=== PATIENT | female | born 1950 | race Caucasian/White ===

== ENCOUNTER 2018-05-28 12:39 | Emergency (ER) | payer MEDICARE, MEDICAID ==
[~2018-05-28] VITALS: Ht 149.9 cm; Wt 74.1 kg
[2018-05-28 12:44] VITALS: BP 152/77
[2018-05-28] MEDS ORDERED: gabapentin 300mg capsule PO STA (13:22)
[2018-05-28] MEDS ORDERED: triamcinolone acetonide 40mg/ml inj IM ONE (13:25)
[2018-05-28] MEDS ORDERED: HYDR-565 PO (14:41)
== END 2018-05-28 14:50 | disposition home or self-care (01) ==
LOC: ER 12:40
DX: M54.5 Low back pain (principal); Z88.1 Allergy status to other antibiotic agents; Z79.899 Other long term (current) drug therapy
CPT/HCPCS: 72100; 96372; 99284; J3301

== ENCOUNTER 2020-12-11 15:21 | Outpatient (CLI) | payer MEDICARE, MEDICAID ==
[~2020-12-11 15:21] MED LIST: ATOR40TA PO; BACL10TA2 PO; CALC300T4 PO; DULO-31 PO; LISI10TA4 PO; LURA20TA PO; LUTE20CA PO; MIRT-116 PO; MONT10TA97 PO; MV,C1TAB21 PO; NAPR375T5 PO; OMEG1CAP2 PO; OMEP20CA15 PO; OXYB5TAB16 PO; iron PO
== END 2020-12-11 23:59 | disposition home or self-care (01) ==
LOC: RAD 15:21
PROVIDERS: ATTEND Family Medicine
DX: R13.10 Dysphagia, unspecified (principal)
CPT/HCPCS: 74230

== ENCOUNTER 2022-03-31 11:59 | Emergency (ER) | payer MEDICARE, MEDICAID ==
[~2022-03-31] VITALS: Ht 149.9 cm; Wt 73.6 kg
[~2022-03-31 11:59] MED LIST changes: +LISI10TA27 PO; -LISI10TA4 PO; +MONT-40 PO; -MONT10TA97 PO
[2022-03-31 12:55] LABS: CLARITY,URINE SLIGHTLY CLOUDY (Clear); COLOR,URINE YELLOW (Yellow); GLUCOSE, URINE NEGATIVE (Neg); KETONES,URINE NEGATIVE (Neg); LEUKOCYTE ESTERASE ,URINE SMALL (Neg); NITRITES, URINE POSITIVE (Neg); OCCULT BLOOD,URINE NEGATIVE (Neg); PROTEIN,URINE NEGATIVE (Neg); UA COLLECTION TYPE CLN CATCH MIDSTREAM; UROBILINOGEN,URINE 0.2 E.U/dL (0.2-1.0)
[2022-03-31 13:07] LABS: BACTERIA,URINE 3+ /HPF (Neg); RBC,URINE 0-2 /HPF (0-2); SQUAMOUS EPITHELIAL CELL,UR FEW /LPF (FEW)
[2022-03-31] MEDS ORDERED: cephalexin 250mg capsule PO ONE (18:45)
[2022-03-31] MEDS ORDERED: ondansetron 4mg rapidly disintigrating tab PO ONE (18:45)
[2022-03-31 19:07] LABS: BASOPHILS % (AUTO) 0.6 % (0-1); EOSINOPHILS # (AUTO) 0.2 X10'3 (0-0.9); EOSINOPHILS % (AUTO) 2.5 % (0-6); HEMATOCRIT 40.6 % (35.0-45.0); HEMOGLOBIN 13.7 g/dl (12.0-16.0); LYMPHOCYTES # (AUTO) 2.7 X10'3 (1.1-4.8); LYMPHOCYTES % (AUTO) 34.8 % (21-51); MEAN CORPUSCULAR HEMOGLOBIN 30.5 PG (27.0-31.0); MEAN CORPUSCULAR HGB CONC 33.7 g/dL (33.0-36.5); MEAN CORPUSCULAR VOLUME 90.4 FL (78-98); MEAN PLATELET VOLUME 9.2 FL (7.4-10.4); MONOCYTES # (AUTO) 0.6 X10'3 (0-0.9); MONOCYTES % (AUTO) 7.3 % (2-12); NEUTROPHILS # (AUTO) 4.2 X10'3 (1.8-7.7); NEUTROPHILS % (AUTO) 54.8 % (42-75); PLATELET COUNT 204 X10'3 (140-440); RED BLOOD COUNT 4.49 X10'6 (4.20-5.60); RED CELL DISTRIBUTION WIDTH 13.5 % (11.5-14.5); WHITE BLOOD COUNT 7.7 X10'3 (4.5-11.0)
[2022-03-31 19:16] VITALS: BP 169/58
[2022-03-31 19:30] LABS: ALANINE AMINOTRANSFERASE 15 U/L (12-78); ALBUMIN 3.5 G/DL (3.4-5.0); ALBUMIN/GLOBULIN RATIO 0.9 (1.1-1.5); ALKALINE PHOSPHATASE 82 IU/L (46-116); ANION GAP 5 (8-16); ASPARTATE AMINO TRANSFERASE 11 U/L (10-37); BILIRUBIN,TOTAL 0.7 MG/DL (0.1-1.0); BLOOD UREA NITROGEN 20 MG/DL (7-18); BUN/CREATININE RATIO 13.2 (6.6-38.0); CALCIUM 8.9 MG/DL (8.5-10.1); CHLORIDE 106 MMOL/L (99-107); CREATININE 1.51 MG/DL (0.40-0.90); GLUCOSE 91 MG/DL (70-104); POTASSIUM 3.9 MMOL/L (3.5-5.1); SODIUM 140 MMOL/L (135-145); TOTAL CARBON DIOXIDE 29.1 MMOL/L (24-32); TOTAL PROTEIN 7.2 G/DL (6.4-8.2); eGFR 34 ML/MIN
[2022-03-31 19:34] LABS: MAGNESIUM 1.8 MG/DL (1.5-2.4)
[2022-03-31] MEDS ORDERED: CEPH250T PO (20:11)
== END 2022-03-31 20:35 | disposition home or self-care (01) ==
LOC: ER 12:00
DX: N39.0 Urinary tract infection, site not specified (principal); R53.81 Other malaise; R47.81 Slurred speech; Z72.89 Other problems related to lifestyle; Z86.2 Personal history of diseases of the blood and blood-forming organs and certain disorders involving the immune mechanism; Z88.1 Allergy status to other antibiotic agents; Z79.2 Long term (current) use of antibiotics; Z79.899 Other long term (current) drug therapy
CPT/HCPCS: 36415; 80053; 81001; 83735; 84443; 84484; 85025; 87077; 87088; 87186; 93005; 99284

== ENCOUNTER 2023-04-27 09:57 | Emergency (ER) | payer MEDICARE, MEDICAID ==
[~2023-04-27] VITALS: Ht 149.9 cm; Wt 79.5 kg
[~2023-04-27 09:57] MED LIST changes: +ALBU18HF2 INH; +ASPI-1071 PO; +AZEL137S4 BOTHNARES; +BUPR-317 PO; -CALC300T4 PO; +FLUT16SP26 BOTHNARES; +LORA10TA7 PO; -LURA20TA PO; +METO25TA6 PO; -MIRT-116 PO; +MIRT7.5T11 PO; -NAPR375T5 PO; +OFLO5DRO5 EACH EAR; +RISP2TAB85 PO; +TRAZ-256 PO; +ZINC50TA60 PO
[2023-04-27 10:01] VITALS: BP 175/58
[2023-04-27] MEDS ORDERED: NAPR-996 PO (11:10)
== END 2023-04-27 11:53 | disposition home or self-care (01) ==
LOC: ER 09:57
DX: M25.561 Pain in right knee (principal); M17.12 Unilateral primary osteoarthritis, left knee; Z88.1 Allergy status to other antibiotic agents
CPT/HCPCS: 73564; 99284

== ENCOUNTER 2024-08-16 06:59 | Day surgery (SDC) | payer MEDICARE, MEDICAID ==
[2024-08-15 12:28] LABS: BASOPHILS # (AUTO) 0.1 X10'3 (0-0.2); BASOPHILS % (AUTO) 0.7 % (0-1); EOSINOPHILS # (AUTO) 0.3 X10'3 (0-0.9); EOSINOPHILS % (AUTO) 2.9 % (0-6); HEMATOCRIT 39.6 % (35.0-45.0); LYMPHOCYTES # (AUTO) 2.8 X10'3 (1.1-4.8); LYMPHOCYTES % (AUTO) 30.6 % (21-51); MEAN CORPUSCULAR HEMOGLOBIN 30.8 PG (27.0-31.0); MEAN CORPUSCULAR VOLUME 93.4 FL (78-98); MEAN PLATELET VOLUME 9.2 FL (7.4-10.4); MONOCYTES # (AUTO) 0.5 X10'3 (0-0.9); MONOCYTES % (AUTO) 5.6 % (2-12); NEUTROPHILS # (AUTO) 5.6 X10'3 (1.8-7.7); NEUTROPHILS % (AUTO) 60.2 % (42-75); PLATELET COUNT 182 X10'3 (140-440); RED BLOOD COUNT 4.23 X10'6 (4.20-5.60); RED CELL DISTRIBUTION WIDTH 14.4 % (11.5-14.5); WHITE BLOOD COUNT 9.3 X10'3 (4.5-11.0)
[2024-08-15 12:46] LABS: ALBUMIN 3.3 G/DL (3.4-5.0); ANION GAP 8 (8-16); APTT 24 SECONDS (22-32); BLOOD UREA NITROGEN 34 MG/DL (7-18); BUN/CREATININE RATIO 23.4 (10.0-20.0); CALCIUM 8.8 MG/DL (8.5-10.1); CHLORIDE 105 MMOL/L (99-107); CREATININE 1.45 MG/DL (0.40-0.90); GLUCOSE 99 MG/DL (70-104); POTASSIUM 4.8 MMOL/L (3.5-5.1); PROTHROMBIN TIME 10.7 SECONDS (9.0-12.0); SODIUM 140 MMOL/L (135-145); TOTAL CARBON DIOXIDE 26.8 MMOL/L (24-32); eGFR 35 ML/MIN
[2024-08-16] VITALS (12 sets, daily range): BP systolic 117–146; BP diastolic 47–106; PULSE 60–74; RESP 10–16; TEMP 97.8; O2SAT 94–98
[~2024-08-16] VITALS: Ht 149.9 cm; Wt 79.7 kg
[~2024-08-16 06:59] MED LIST changes: -BUPR-317 PO; +BUPR-561 PO; +NAPR-996 PO; -OXYB5TAB16 PO; +OXYB5TAB21 PO; +RISP-32 PO; -RISP2TAB85 PO
[2024-08-16] MEDS ORDERED: LOSA25TA41 PO (07:34)
[2024-08-16] MEDS ORDERED: ATOR-2 PO (07:34)
[2024-08-16] MEDS ORDERED: OLAN5TAB75 PO (07:34)
[2024-08-16] MEDS ORDERED: OLAN15TA35 PO (07:34)
[2024-08-16] MEDS ORDERED: cefazolin 2gm/D5W 100mL 100 ML IV ONE (07:45)
[2024-08-16] MEDS ORDERED: fentaNYL/PF 50MCG/1 ML 2ML syringe ONE (08:18)
[2024-08-16] MEDS ORDERED: midazolam 1 mg/ML 2ml injection ONE (08:18)
[2024-08-16] MEDS ORDERED: LIDOcaine 1% w/EPI 1:100,000 inj. MDV 50 ML VIAL ONE (08:18)
[2024-08-16] MEDS ORDERED: iohexol 350 MG/ML 50ML vial IV ONE (08:48)
[2024-08-16] MEDS ORDERED: clindamycin 600mg/D5W 50ml 50 ML IV ONE ×2 (08:54→08:55)
[2024-08-16] MEDS ORDERED: diphenhydrAMINE 50 mg/ml inj ONE (09:01)
[2024-08-16] MEDS ORDERED: CLIN300C3 PO (10:49)
[2024-08-16] MEDS ORDERED: HYDROcodone/acetaminophen 5mg/325mg tablet PO PRN (10:55)
[2024-08-16] MEDS ORDERED: HYDROcodone/acetaminophen 10/325mg tab PO PRN (10:55)
[2024-08-16] MEDS: vancomycin/NS 1 GM ADD-VANTAGE 250 ML X 1 DOSE IV ONE (12:36)
== END 2024-08-16 16:00 | disposition home or self-care (01) ==
LOC: SSTAY O 06:59
PROVIDERS: ATTEND Internal Medicine Cardiovascular Disease
DX: I49.5 Sick sinus syndrome (principal); I45.10 Unspecified right bundle-branch block; I10 Essential (primary) hypertension; I25.119 Atherosclerotic heart disease of native coronary artery with unspecified angina pectoris; E78.5 Hyperlipidemia, unspecified; I35.0 Nonrheumatic aortic (valve) stenosis; F41.9 Anxiety disorder, unspecified; F31.9 Bipolar disorder, unspecified; Z79.82 Long term (current) use of aspirin; Z79.899 Other long term (current) drug therapy; Z90.89 Acquired absence of other organs; Z90.710 Acquired absence of both cervix and uterus; Z98.890 Other specified postprocedural states; Z88.0 Allergy status to penicillin; Z82.49 Family history of ischemic heart disease and other diseases of the circulatory system
CPT/HCPCS: 33208; 36415; 71046; 80048; 85025; 85610; 85730; 93005; 99152; 99153; A4565; A6258; C1785; C1898; J1200; J2250; J3010; J3370; J3490; J7030; Q9967; Z7610

== ENCOUNTER 2024-09-24 18:42 | Emergency (ER) | payer MEDICARE, MEDICAID ==
[~2024-09-24] VITALS: Ht 149.9 cm; Wt 83.0 kg
[~2024-09-24 18:42] MED LIST changes: -ALBU18HF2 INH; +ATOR-2 PO; -ATOR40TA PO; +LOSA25TA41 PO; -MIRT7.5T11 PO; -MV,C1TAB21 PO; -NAPR-996 PO; +OLAN15TA35 PO; +OLAN5TAB75 PO; -RISP-32 PO; -TRAZ-256 PO
[2024-09-24 18:48] VITALS: BP 163/64; PULSE 71; TEMP 98.8; O2SAT 95
[2024-09-24 19:45] LABS: BASOPHILS # (AUTO) 0.1 X10'3 (0-0.2); BASOPHILS % (AUTO) 0.8 % (0-1); EOSINOPHILS # (AUTO) 0.3 X10'3 (0-0.9); HEMATOCRIT 36.2 % (35.0-45.0); HEMOGLOBIN 11.7 g/dl (12.0-16.0); LYMPHOCYTES # (AUTO) 2.5 X10'3 (1.1-4.8); LYMPHOCYTES % (AUTO) 28.1 % (21-51); MEAN CORPUSCULAR HEMOGLOBIN 29.8 PG (27.0-31.0); MEAN CORPUSCULAR HGB CONC 32.4 g/dL (33.0-36.5); MEAN PLATELET VOLUME 8.9 FL (7.4-10.4); MONOCYTES # (AUTO) 0.6 X10'3 (0-0.9); MONOCYTES % (AUTO) 6.7 % (2-12); NEUTROPHILS # (AUTO) 5.5 X10'3 (1.8-7.7); NEUTROPHILS % (AUTO) 61.4 % (42-75); PLATELET COUNT 236 X10'3 (140-440); RED BLOOD COUNT 3.93 X10'6 (4.20-5.60); RED CELL DISTRIBUTION WIDTH 14.1 % (11.5-14.5)
[2024-09-24 20:02] LABS: ALANINE AMINOTRANSFERASE 18 U/L (12-78); ALBUMIN 2.8 G/DL (3.4-5.0); ALBUMIN/GLOBULIN RATIO 0.7 (1.1-1.5); ALKALINE PHOSPHATASE 98 IU/L (46-116); ANION GAP 4 (8-16); ASPARTATE AMINO TRANSFERASE 9 U/L (10-37); BILIRUBIN,TOTAL 0.4 MG/DL (0.1-1.0); BLOOD UREA NITROGEN 22 MG/DL (7-18); BUN/CREATININE RATIO 14.9 (10.0-20.0); CALCIUM 8.7 MG/DL (8.5-10.1); CHLORIDE 108 MMOL/L (99-107); CREATININE 1.48 MG/DL (0.40-0.90); GLUCOSE 108 MG/DL (70-104); POTASSIUM 4.4 MMOL/L (3.5-5.1); SODIUM 142 MMOL/L (135-145); TOTAL CARBON DIOXIDE 29.8 MMOL/L (24-32); eCRCL 22 ML/MIN; eGFR 34 ML/MIN
[2024-09-24] MEDS ORDERED: RIFA300C65 PO (21:14)
[2024-09-24] MEDS ORDERED: DOXY-1 PO (21:14)
[2024-09-24] MEDS: DOXYCYCLINE 100MG CAPSULE PO STA (21:47)
[2024-09-24] MEDS: rifampin 300mg capsule PO ONE (21:47)
[2024-09-24 21:48] VITALS: RESP 16
== END 2024-09-24 22:24 | disposition home or self-care (01) ==
LOC: ER 18:43
DX: L03.313 Cellulitis of chest wall (principal); F41.9 Anxiety disorder, unspecified; F32.A Depression, unspecified; D64.9 Anemia, unspecified; Z72.89 Other problems related to lifestyle; Z88.1 Allergy status to other antibiotic agents; Z79.82 Long term (current) use of aspirin; Z79.52 Long term (current) use of systemic steroids; Z79.899 Other long term (current) drug therapy
CPT/HCPCS: 36415; 71046; 80053; 84145; 85025; 99284